=== PATIENT | female | born 1970 | race Caucasian/White ===

== ENCOUNTER 2021-11-04 11:05 | Day surgery (SDC) | payer MEDICARE ==
[2021-11-04] MEDS ORDERED: Xylocaine 1% Vial 30 ML PF IJ ONE (11:06)
[2021-11-04] MEDS ORDERED: Depo-Medrol 40 MG/ML IM ONE ×2 (11:06)
[2021-11-04] MEDS ORDERED: Sodium Chloride 0.9(Preservative Free) 10 ML IJ ONE (11:06)
[2021-11-04] MEDS ORDERED: BUPIVACAINE 0.5% VIAL IJ ONE (11:06)
[2021-11-04] MEDS ORDERED: Pepcid 20 MG VIAL IV ONE (12:59)
[2021-11-04] MEDS ORDERED: Reglan 10 MG/2 ML ONE (13:00)
[2021-11-04] MEDS ORDERED: Lactated Ringers 1,000 ML IV ONE (13:32)
[2021-11-04] MEDS ORDERED: DIPRIVAN 200 MG/20 ML IV ONE (13:45)
--- NOTE | 2021-11-04 14:37 | XRAY ---
Indication: Left L3-L5 transforaminal ADRIAN. Intraoperative fluoroscopy provided for 14 seconds. 3 digital spot images submitted for interpretation demonstrates posterior needle tips projecting over the expected left L3 and L4 nerve roots. Small amount of contrast injected for needle tip placement. Correlate with intraoperative findings/report.
--- NOTE | 2021-11-04 15:06 | XRAY ---
14 seconds fluoroscopy time in surgery for left L3-L5 transforaminal ADRIAN.
== END 2021-11-04 14:10 | disposition home or self-care (01) ==
LOC: SDC-PAIN 11:05
PROVIDERS: ATTEND Psychiatry & Neurology Pain Medicine
DX: M54.16 Radiculopathy, lumbar region (principal); Z79.899 Other long term (current) drug therapy
CPT/HCPCS: 64483; 64484; 72100; 77003; J1030; J2001; J2704; Q9966

== ENCOUNTER 2022-11-03 11:11 | Day surgery (SDC) | payer MEDICARE, OTHER ==
[2022-11-03] MEDS ORDERED: Depo-Medrol 40 MG/ML IM ONE (11:12)
[2022-11-03] MEDS ORDERED: BUPIVACAINE 0.5% VIAL IJ ONE (11:12)
[2022-11-03] MEDS ORDERED: Zofran 4 MG/2 ML VIAL ONE (13:12)
[2022-11-03] MEDS ORDERED: DIPRIVAN 200 MG/20 ML IV ONE (13:19)
--- NOTE | 2022-11-03 15:21 | XRAY ---
Indication: Bilateral SI joint injection. Intraoperative fluoroscopy provided for 20 seconds. 3 digital spot image submitted for interpretation demonstrates posterior needle tip projecting over the right SI joint. Correlate with intraoperative findings/report.
[2022-11-03] MEDS ORDERED: Lactated Ringers 1,000 ML IV ONE (15:42)
--- NOTE | 2022-11-03 17:05 | XRAY ---
20 seconds of fluoroscopy was used in surgery for a bilateral sacroiliac joint injection.
== END 2022-11-03 13:50 | disposition home or self-care (01) ==
LOC: SDC-PAIN 11:11
PROVIDERS: ATTEND Psychiatry & Neurology Pain Medicine
DX: M46.1 Sacroiliitis, not elsewhere classified (principal); Z79.899 Other long term (current) drug therapy
CPT/HCPCS: 01992; 27096; 72202; 77002; G0260; J1030; J2405; J2704